=== PATIENT | female | born 1940 | race Caucasian/White ===

== ENCOUNTER 2017-09-26 06:29 | Observation (INO) | payer MEDICARE, BC ==
[2017-09-26 07:14] LABS: #Basophils 0.1 thou/uL (0.0-0.2); #Eosinphils 0.1 thou/uL (0.0-0.7); #Lymphocytes 0.7 thou/uL (1.20-3.40); #Monocytes 0.4 thou/uL (0.11-0.59); #Neutrophils 7.7 thou/uL (1.40-6.50); %Basophils 0.6 % (0.0-1.0); %Eosinophils 1.3 % (0.0-10.0); %Monocytes 4.3 % (0.0-10.0); Hematocrit 44.9 % (36.0-47.0); Mean Platelet Volume 7.7 fL (7.4-10.4); Red Blood Cell (RBC) Count 4.98 mill/uL (4.20-5.40)
[2017-09-26 07:28] LABS: ALT (SGPT) 24 U/L (8-55); AST (SGOT) 21 U/L (5-34); Alkaline Phosphatase 91 U/L (40-150); Anion Gap 15 mmol/L (10-20); BUN (Urea Nitrogen) 28 mg/dL (9.8-20.1); Bilirubin, Total 0.9 mg/dL (0.2-1.2); CK (CPK) 55 U/L (29-168); Calc. Creatinine Clearance 0 mL/min (70-130); Calcium 10.2 mg/dL (7.8-10.44); Carbon Dioxide 25 mmol/L (23-31); Chloride 102 mmol/L (98-107); Estimated GFR-MDRD 72; Lipase 25 U/L (8-78); Protein, Total 7.7 g/dL (6.0-8.3)
[2017-09-26 07:33] LABS: Troponin I Less than 0.010 ng/mL (< 0.028)
[2017-09-26] MEDS ORDERED: Lidocaine 1% w/Epinephrine 1:200K 30 ML VIAL ONE (07:35)
--- NOTE | 2017-09-26 08:25 | RAD ---
RADIOGRAPH CHEST 1 VIEW: HISTORY: 77-year-old female status post syncope. FINDINGS: The thoracic aorta is tortuous and ectatic. There is no evidence of air space density, pneumothorax, or pulmonary edema. The lateral costophrenic angles are sharp. IMPRESSION: 1) No acute pulmonary findings. 2) Ectasia of thoracic aorta. arun POS: [facility]
--- NOTE | 2017-09-26 08:26 | CT ---
CT OF BRAIN PERFORMED WITHOUT CONTRAST ENHANCEMENT: History: Head injury with syncope. FINDINGS: There is some generalized ventricular and sulcal prominence which is fairly age appropriate. There ar e no signs of intracerebral hemorrhage or extraaxial fluid collections. A right posterior scalp injur y is noted. Mastoid air cells are clear. There is minimal mucosal change of the mastoid air cells. IMPRESSION: No acute intracranial abnormalities. POS: [facility]
[2017-09-26] MEDS ORDERED: Acetaminophen 500 MG TAB ONE (09:20)
--- NOTE | 2017-09-26 10:52 | HP ---
PRIMARY CARE PHYSICIAN: Kevan Arndt M.D. CHIEF COMPLAINT: Syncope. HISTORY OF PRESENT ILLNESS: This is a 77-year-old white female with past medical history of only hypothyroidism who was in her normal good state of health until yesterday evening. She ate a microwave dinner of [employer]. Afterwards, she started to feel nauseated, this nausea got worse and then it persisted all night long though she did not vomit overnight. She did have one loose bowel movement earlier in the morning and then this morning, the patient woke up, she still felt quite nauseated, went to get some coffee and then she vomited into the sink and after lying on the sink she passed out. She did not have any palpitations or preceding neurologic symptoms prior to the syncope. She woke up on the floor, was confused for about a minute and then came and was back to her normal state of mental status. She did have a large laceration on the right posterior scalp, which was bleeding, but quickly stopped with pressure , so she came to the emergency room for evaluation. In the ER, she had complete resolution of her nausea ever since she was able to vomit, has been asymptomatic since she got to the emergency room, she was initially a little tachycardic, but this resolved after recheck. The patient did have her scalp sutured closed in the ER, she had a negative CT scan and is being admitted for observation in the hospital. PAST MEDICAL HISTORY: Hypothyroidism. PAST SURGICAL HISTORY: 1. Cyst removal in ovary. 2. Left knee arthroscopy. 3. Appendectomy. 4. Cholecystectomy. 5. Hysterectomy. 6. Tonsillectomy. SOCIAL HISTORY: Patient denies tobacco use, no drug use. She does drink wine everyday 1-2 glasses. She did have 2 glasses of red wine last night. FAMILY HISTORY: Father had a stroke in his old age. ALLERGIES: Possibly sulfa though she is not certain. CURRENT MEDICATION: Levothyroxine 125 mcg daily. REVIEW OF SYSTEMS: CONSTITUTIONAL: No fevers, no chills, no weight changes. EYES: No double vision or blurred vision. ENT: No congestion, drainage or sore throat. CARDIOVASCULAR: No chest pain, no palpitations, no racing heart. PULMONARY: No coughing, wheezing or shortness of breath. GASTROINTESTINAL: See HPI. No hematochezia, no hematemesis, no current abdominal pain or nausea. GENITOURINARY: No dysuria or hematuria. MUSCULOSKELETAL: No muscle aches or joint pains. No neck pain, no back pain after the fall. SKIN: She had a laceration in the posterior right scalp as per HPI. She has not noticed any other skin lesions or rashes. NEUROLOGIC: No numbness, tingling or focal weakness, no witnessed seizure activity. PHYSICAL EXAMINATION: VITAL SIGNS: Blood pressure 133/79, pulse 86, respirations 18, temperature 98.6 , O2 sat 97% on room air. GENERAL: This is a well-developed, obese white female in no apparent distress. HEENT: Pupils equal, round, and reactive to light. Extraocular movements intact. Oropharynx clear without lesions, erythema or exudate. NECK: Supple, no lymphadenopathy, no thyroid nodules or enlargement, no JVD. No tenderness to palpation. Full range of motion. HEART: Regular rate and rhythm, no murmurs, rubs or gallops. LUNGS: Clear to auscultation bilaterally, no wheezes, crackles or rhonchi. ABDOMEN: Soft, nontender to palpation, normoactive bowel sounds, no hepatosplenomegaly or other masses. EXTREMITIES: No clubbing, cyanosis or edema. SKIN: The patient does have a linear about 4-5 cm laceration on the right posterior scalp that has been sutured closed. No surrounding edema, no bony deformity, no other rashes visualized. NEUROLOGIC: Cranial nerves intact and equal bilaterally. No facial droop. Deep tendon reflexes 2+ in all extremities. Strength 5/5 in all extremities. PSYCHIATRIC: Alert and oriented x3, normal mood and affect. Intact judgment and insight. LABORATORY DATA: CBC within normal limits. Complete metabolic panel was notable only for a BUN of 28 and glucose of 145. Her first cardiac marker set is negative. EKG done in the emergency room shows mild sinus tachycardia without any evidence of significant ST changes and no arrhythmias. Chest x-ray : I did review the chest x-ray done in the emergency room along with the radiologist's report. There is an ectatic aorta, but no evidence of acute cardiopulmonary process. CT scan done in the emergency room showed no intracranial hemorrhage or abnormalities. ASSESSMENT AND PLAN: 1. Syncopal episode, likely secondary to vasovagal syncope after her episode of vomiting. Her symptoms have completely resolved. With the nausea and syncope, there is always a chance of cardiac origin. This far, there does not appear to be any abnormality on her EKG and her cardiac marker set negative x1. We will put her on observation in telemetry over the course of today and get two more cardiac marker sets. We will also observe her for any arrhythmias on the monitor. Should these be negative, she can go home in the evening. 2. Nausea with vomiting, likely a mild case of food poisoning. His symptoms seem to have resolved now. We will monitor for any further abnormalities. 3. Hyperthyroidism. We will resume home levothyroxine dose. 4. Gastrointestinal prophylaxis. Put the patient on Pepcid in the hospital. 5. Deep venous thrombosis prophylaxis. We will have patient ambulate frequently in the hospital first time with assist. Should she need to stay longer, we will put SCDs and TEDs on, while Lovenox at this time is not necessary. CODE STATUS: Patient is a FULL CODE. Should she be incapacitated, her medical decision maker would be her , Alexys Soni. MIGEL
[2017-09-26] MEDS ORDERED: Ondansetron ODT 4 MG TAB PO PRN (11:46)
[2017-09-26] MEDS ORDERED: Ondansetron HCl/PF 4 MG/2 ML Vial IVP PRN (11:46)
[2017-09-26] MEDS ORDERED: Bisacodyl 5 MG TAB PO PRN (11:46)
[2017-09-26 11:48] LABS: Troponin I 0.017 ng/mL (< 0.028)
[2017-09-26 13:49] LABS: Troponin I Less than 0.010 ng/mL (< 0.028)
[2017-09-26] MEDS ORDERED: Acetaminophen 325 MG TAB PO PRN (14:52)
[2017-09-26 18:11] VITALS: BP 132/62; TEMP 98.3
[2017-09-26 18:24] VITALS: BMI 30.6
[2017-09-26] MEDS ORDERED: Famotidine 20 MG TAB PO SCH (21:00)
--- NOTE | 2017-09-27 01:32 | DIS ---
PRIMARY CARE PHYSICIAN: Dr. Arndt. DIAGNOSES ON ADMISSION: 1. Syncopal episode. 2. Nausea with vomiting. 3. Hypothyroidism. 4. Scalp laceration. DIAGNOSES AT DISCHARGE: 1. Vasovagal syncope. 2. Mild food poisoning, resolved. 3. Hypothyroidism. 4. Scalp laceration. CONSULTATIONS: None. PROCEDURES: CT of the brain showing no acute abnormalities. SUMMARY OF HOSPITAL COURSE: This is a 77-year-old white female with a past medical history of hypoth yroidism, who was in good state of health until she ate a microwave dinner was [employer]. She started to feel nauseated, was nauseated all night, and then in the morning she vomited into the kitchen sink a fter which she passed out. She woke up with pain in the right back of her head where she had a lacer ation, so she came into the emergency room. The patient was admitted for observation. Her heart was monitored on the monitor without any evidence of arrhythmia. She had serial cardiac markers, done w hich were all negative and she has been asymptomatic and ambulating well without dizziness. She has had no more nausea or vomiting. At this point, she is stable for discharge home. DISCHARGE MANAGEMENT: Discharge to home. Follow up with Dr. Arndt in the next week. ACTIVITY: As tolerated. DIET: Normal diet. MEDICATIONS: She is to resume her home medications and can take Tylenol or ibuprofen for pain.
[2017-09-27] MEDS ORDERED: Levothyroxine Sodium 125 MCG TAB PO SCH (06:00)
--- NOTE | 2017-10-30 13:56 | EKG ---
Test Reason : LOC Blood Pressure : / mmHG Vent. Rate : 101 BPM Atrial Rate : 101 BPM P-R Int : 160 ms QRS Dur : 086 ms QT Int : 338 ms P-R-T Axes : 070 016 038 degrees QTc Int : 438 ms Sinus tachycardia Possible Left atrial enlargement Low voltage QRS Cannot rule out Anterior infarct , age undetermined T wave abnormality, consider inferior ischemia Abnormal ECG Confirmed by HARPREET BURNS MD ([id number]), subeditor EVIN WALSH ([id number]) on 10/30/2017 1:55:38 PM Referred By: TRIAGE Confirmed By:HARPREET BURNS MD
== END 2017-09-26 18:50 | disposition home or self-care (01) ==
LOC: ERS 06:29 → 2NO 09:05
PROVIDERS: ADMIT Emergency Medicine; ATTEND Emergency Medicine
DX: T62.8X1A Toxic effect of other specified noxious substances eaten as food, accidental (unintentional), initial encounter (principal); S01.01XA Laceration without foreign body of scalp, initial encounter; R55 Syncope and collapse; R11.2 Nausea with vomiting, unspecified; E03.9 Hypothyroidism, unspecified; Z88.2 Allergy status to sulfonamides; Z79.899 Other long term (current) drug therapy; Z90.49 Acquired absence of other specified parts of digestive tract; Z90.710 Acquired absence of both cervix and uterus; Z90.89 Acquired absence of other organs; Z98.890 Other specified postprocedural states; Z82.3 Family history of stroke
CPT/HCPCS: 70450; 71010; 80053; 82550; 82553; 83690; 84484 ×2; 85025; 93005; 94760; 99285; G0378; 36415

== ENCOUNTER 2020-11-10 14:15 | Outpatient (CLI) | payer MEDICARE, BC ==
--- NOTE | 2020-11-10 15:01 | BD ---
EXAM: Bone densitometry using DEXA HISTORY: 80 yo female. Screening for postmenopausal osteoporosis FINDINGS: L1--bone mineral density 0.813 g/sq cm; T score -1.6 ; Z score 0.7 L2--bone mineral density 0.866 g/sq cm; T score -1.5 ; Z score 1.1 L3--bone mineral density 0.893 g/sq cm; T score -1.7 ; Z score 1.0 L4--bone mineral density 0.902 g/sq cm; T score -1.4 ; Z score 1.4 Total L1-L4--bone mineral density 0.869 g/sq cm; T score -1.6 ; Z score 1.0 Left femoral neck--bone mineral density0.634; T score -1.9 ; Z score 0.4 Total proximal left femur--bone mineral density 0.863; T score -0.6 ; Z score 1.4 The 10 year fracture risk for a major osteoporotic fracture is 16% and for a hip fracture is 4.4%. IMPRESSION: Osteopenia
== END 2020-11-10 14:16 | disposition home or self-care (01) ==
LOC: BICMAMMO 14:15
PROVIDERS: ATTEND Student in an Organized Health Care Education/Training Program
DX: Z13.820 Encounter for screening for osteoporosis (principal); M85.89 Other specified disorders of bone density and structure, multiple sites
CPT/HCPCS: 77080

== ENCOUNTER 2023-01-24 10:44 | Outpatient (CLI) | payer MEDICARE, BC | END 2023-01-24 10:45 | disposition home or self-care (01) | LOC: BICMAMMO 10:44 | PROVIDERS: ATTEND Student in an Organized Health Care Education/Training Program | DX: Z13.820 Encounter for screening for osteoporosis (principal); M85.80 Other specified disorders of bone density and structure, unspecified site | CPT/HCPCS: 77080 ==

== ENCOUNTER 2025-07-03 13:05 | Outpatient (CLI) | payer MEDICARE, OTHER | END 2025-07-03 13:06 | disposition home or self-care (01) | LOC: BICMAMMO 13:05 | PROVIDERS: ATTEND Student in an Organized Health Care Education/Training Program | DX: Z78.0 Asymptomatic menopausal state (principal); M85.89 Other specified disorders of bone density and structure, multiple sites | CPT/HCPCS: 77080 ==